=== PATIENT | male | born 1980 | race Caucasian/White ===

== ENCOUNTER → 2023-01-10 | Emergency (ER) | payer OTHER ==
[~2023-01-10] MED LIST: NA CHLORIDE 0.9% 1,000 ML ONE
== END ==
LOC: ER 15:38
DX: Z02.9 Encounter for administrative examinations, unspecified (principal)

== ENCOUNTER 2023-01-12 11:24 | Emergency (ER) | payer OTHER, SELFPAY ==
[2023-01-12 12:09] LABS: Absolute Lymphocytes (CBC) 1.3 K/uL (0.7-4.9); Hematocrit 39.5 % (39.6-49.0); MCV 88.7 fL (80-100); RBC Red Blood Cell Count 4.45 M/uL (4.33-5.43)
[2023-01-12 12:32] LABS: ALT/SGPT 70 U/L (16-61); AST/SGOT 105 U/L (15-37); Albumin 3.6 g/dL (3.4-5.0); Alkaline Phosphatase 86 U/L (45-117); BUN Blood Urea Nitrogen 23 mg/dL (7-18); Bicarbonate 27 mEq/L (21-32); Bilirubin Total 0.3 mg/dL (0.2-1.0); Glomerular Filtration Rate 65 ml/min (=/>90); Glucose Level 110 mg/dL (74-106); Magnesium 2.3 mg/dL (1.6-2.4); NT PRO-BNP 11 pg/mL (<125); Potassium 4.7 mEq/L (3.5-5.1); Protein, Total 7.4 g/dL (6.4-8.2); Sodium Level 134 mEq/L (136-145); Troponin High Sensitivity 7.9 pg/mL (<58.9)
--- NOTE | 2023-01-12 12:32 | RAD REPORT ---
EXAM DESCRIPTION: [facility] Single View01/12/2023 12:19 pm CLINICAL HISTORY: Chest pain COMPARISON: none FINDINGS: A 3 millimeter nodular opacity mid right lung The lungs appear clear of acute infiltrate. The heart is normal size IMPRESSION: 3 millimeter nodular opacity mid right lung probably benign. Follow-up x-ray in 1 year r ecommended
[2023-01-12 12:33] LABS: Bilirubin Direct < 0.1 mg/dL (0-0.2); Bilirubin Indirect, Calculated ND mg/dL (0.2-0.8)
--- NOTE | 2023-01-12 13:10 | ER ---
Nurse's Notes [facility] Name: Tk Tineo Age: 42 yrs Sex: Male : 1980 Arrival Date: 01/12/2023 Time: 11:24 Bed 3 Private MD: Diagnosis: Dizziness and giddiness;Dehydration Presentation: 01/12 11:37 Chief complaint: Patient states: I've been feeling off, my BP has been up and down , iw has had cold sweats, feels weak, went to urgent care last night , EKG was abnormal and was told to follow up with cardiology. Coronavirus screen: Client presents with at least one sign or symptom that may indicate coronavirus-19. Ebola Screen: Patient negative for fever greater than or equal to 101.5 degrees Fahrenheit, and additional compatible Ebola Virus Disease symptoms Patient denies exposure to infectious person. Patient denies travel to an Ebola-affected area in the 21 days before illness onset. No symptoms or risks identified at this time. 11:37 Method Of Arrival: Ambulatory iw 11:37 Acuity: MALINDA 3 iw 11:39 Initial Sepsis Screen: Does the patient meet any 2 criteria? No. Patient's initial iw sepsis screen is negative. Does the patient have a suspected source of infection? No. Patient's initial sepsis screen is negative. Risk Assessment: Do you want to hurt yourself or someone else? Patient reports no desire to harm self or others. Onset of symptoms was January 10, 2023. Historical: - Allergies: 11:42 No Known Allergies; iw - Home Meds: 11:42 lisinopril 20 mg Oral tablet daily [Active]; Albuterol Inhl [Active]; iw - PMHx: 11:42 Hypertensive disorder; Asthma; iw - Immunization history:: Client reports receiving the 2nd dose of the Covid vaccine. - Social history:: Smoking status: Patient denies any tobacco usage or history of. Screenin:00 [facility] ED Fall Risk Assessment (Adult) History of falling in the last 3 months, aa5 including since admission No falls in past 3 months (0 pts) Confusion or Disorientation No (0 pts) Intoxicated or Sedated No (0 pts) Impaired Gait No (0 pts) Mobility Assist Device Used No (0 pt) Altered Elimination No (0 pt) Score/Fall Risk Level 0 - 2 = Low Risk Oriented to surroundings, Maintained a safe environment, Educated pt \T\ family on fall prevention, incl call for assistance when getting out of bed. Abuse screen: Denies threats or abuse. Nutritional screening: No deficits noted. Tuberculosis screening: No symptoms or risk factors identified. Assessment: 12:00 General: Appears comfortable, Behavior is calm, cooperative. Pain: Denies pain. Neuro: aa5 Level of Consciousness is awake, alert, obeys commands, Oriented to person, place, time, situation, Reports dizziness, upon standing and with movement. Cardiovascular: Heart tones S1 S2 present Rhythm is regular. Respiratory: Airway is patent Respiratory effort is even, unlabored, Respiratory pattern is regular, symmetrical. GI: Abdomen is round non-distended, Bowel sounds present X 4 quads. Abd is soft and non tender X 4 quads. Patient currently denies diarrhea, nausea, vomiting. : No signs and/or symptoms were reported regarding the genitourinary system. EENT: No signs and/or symptoms were reported regarding the EENT system. Derm: Skin is pink, warm \T\ dry. Musculoskeletal: Range of motion: intact in all extremities. Vital Signs: 11:39 BP 126 / 95; Pulse 85; Resp 16; Pulse Ox 100% on R/A; Weight 111.13 kg; Height 6 ft. 4 iw in. ; Pain 0/10; 13:00 BP 118 / 74; Pulse 67; Pulse Ox 99% on R/A; ap3 11:39 Body Mass Index 29.82 (111.13 kg, 193.04 cm) iw 11:39 Pain Scale: Adult iw ED Course: 11:29 Patient arrived in ED. im 11:37 Corey Guerrier MD is Attending Physician. jr11 11:38 Triage completed. iw 11:39 Arm band placed on. iw 11:48 Charlene Higgins, CANDE is Primary Nurse. aa5 12:00 Patient has correct armband on for positive identification. Bed in low position. Call aa5 light in reach. Side rails up X2. Client placed on continuous cardiac and pulse oximetry monitoring. NIBP monitoring applied. 12:00 Initial lab(s) drawn, by me, sent to lab. Inserted saline lock: 20 gauge in left aa5 antecubital area, using aseptic technique. Blood collected. 12:20 XRAY Chest (1 view) In Process Unspecified. EDMS 13:23 Provided Education on: discharge instructions. ap3 13:23 No provider procedures requiring assistance completed. IV discontinued, intact, ap3 bleeding controlled, No redness/swelling at site. Pressure dressing applied. Administered Medications: 12:07 Drug: NS 0.9% IV 1000 ml Route: IV; Rate: 999 ml/hr; Site: left antecubital; ap3 13:18 Follow up: IV Status: Completed infusion ap3 Medication: 13:24 VIS not applicable for this client. ap3 Outcome: 13:09 Discharge ordered by . renetta 13:23 Discharged to home ambulatory, with family. ap3 13:23 Condition: good 13:23 Discharge instructions given to patient, family, Instructed on discharge instructions, follow up and referral plans. Demonstrated understanding of instructions, follow-up care. 13:24 Patient left the ED. ap3 Signatures: Dispatcher [employer] EDMS Lianet Jordan RN RN iw Charlene Higgins RN RN aa5 Park Cam RN RN ap3 Corey Guerrier MD MD jr11 Nereyda Colmenares Corrections: (The following items were deleted from the chart) 11:44 11:39 BP 126 / 95; Pulse 85bpm; Resp 16bpm; Pulse Ox 100% RA; iw iw
--- NOTE | 2023-01-12 13:10 | EDPHYS ---
Physician Documentation [facility] Name: Tk Tineo Age: 42 yrs Sex: Male : 1980 Arrival Date: 01/12/2023 Time: 11:24 Bed 3 Private MD: ED Physician Corey Guerrier HPI: 01/12 11:48 This 42 yrs old Male presents to ER via Ambulatory with complaints of Flu Symptoms, bp jr11 issues, Dizziness. 11:48 Patient is a 42-year-old with history of hypertension on lisinopril and also asthma jr11 here with 3-day history of just not feeling well. Patient feels generalized weakness, some shakiness, went to an urgent care where he was told he had an abnormal EKG but does not remember what the finding was. Denies shortness of breath denies chest pain. Denies exertional pain, no tearing pain, does not radiate to the back, does not cross the diaphragm. No diaphoresis, no vomiting. No syncope or near-syncope. . Historical: - Allergies: 11:42 No Known Allergies; iw - Home Meds: 11:42 lisinopril 20 mg Oral tablet daily [Active]; Albuterol Inhl [Active]; iw - PMHx: 11:42 Hypertensive disorder; Asthma; iw - Immunization history:: Client reports receiving the 2nd dose of the Covid vaccine. - Social history:: Smoking status: Patient denies any tobacco usage or history of. ROS: 11:48 All other systems are negative. jr11 Exam: 11:48 Constitutional: This is a well developed, well nourished patient who is awake, alert, jr11 and in no acute distress. Head/Face: Normocephalic, atraumatic. Eyes: Extra-ocular motions intact. Lids and lashes normal. Conjunctiva and sclera are non-icteric and not injected. Cornea within normal limits. Periorbital areas with no swelling, redness, or edema. ENT: Nares patent. No nasal discharge, no septal abnormalities noted. Oropharynx with no redness, swelling, or masses, exudates, or evidence of obstruction, uvula midline. Mucous membranes moist. Neck: Trachea midline, no thyromegaly or masses palpated, and no cervical lymphadenopathy. Supple, full range of motion without nuchal rigidity, or vertebral point tenderness. No Meningismus. Chest/axilla: Normal chest wall appearance and motion. Nontender with no deformity. No lesions are appreciated. Cardiovascular: Regular rate and rhythm with a normal S1 and S2. No gallops, murmurs, or rubs. Normal PMI, no JVD. No pulse deficits. Respiratory: Lungs have equal breath sounds bilaterally, clear to auscultation and percussion. No rales, rhonchi or wheezes noted. No increased work of breathing, no retractions or nasal flaring. Abdomen/GI: Soft, non-tender, with normal bowel sounds. No distension or tympany. No guarding or rebound. No evidence of tenderness throughout. Skin: Warm, dry with normal turgor. Normal color with no rashes, no lesions, and no evidence of cellulitis. MS/ Extremity: Pulses equal, no cyanosis. Neurovascular intact. Full, normal range of motion. Neuro: Awake and alert, GCS 15, oriented to person, place, time, and situation. No gross motor or sensory deficits. Vital Signs: 11:39 BP 126 / 95; Pulse 85; Resp 16; Pulse Ox 100% on R/A; Weight 111.13 kg; Height 6 ft. 4 iw in. ; Pain 0/10; 13:00 BP 118 / 74; Pulse 67; Pulse Ox 99% on R/A; ap3 11:39 Body Mass Index 29.82 (111.13 kg, 193.04 cm) iw 11:39 Pain Scale: Adult iw MDM: 11:48 Patient medically screened. jr11 11:48 Differential diagnosis: cardiac arrhythmia, generalized weakness, hypovolemia, vertigo. jr11 Data reviewed: vital signs, nurses notes. 12:03 ED course: EKG interpreted by me shows normal sinus rhythm, normal axis, normal jr11 intervals, no acute ST changes.. 13:08 ED course: Chest x-ray interpreted by me does not show pneumonia, concern for nodule. jr11 Discussed this nodule with the patient, patient understands that it is his responsibility to follow-up in 1 month. No emergent need to do anything with this at this time. Patient with slight volume depletion, will start hydrating with Gatorade, EKG normal. ER warnings given all results explained. Patient feeling back to baseline. 01/12 11:47 Order name: Basic Metabolic Panel; Complete Time: 12:36 jr11 07/31 11:47 Order name: CBC with Diff; Complete Time: 12:36 01/12 11:47 Order name: LFT's; Complete Time: 12:36 01/12 11:47 Order name: Magnesium; Complete Time: 12:36 01/12 11:47 Order name: NT PRO-BNP; Complete Time: 12:36 01/12 11:47 Order name: Troponin HS; Complete Time: 12:36 01/12 11:47 Order name: TSH; Complete Time: 12:36 01/12 11:48 Order name: SARS-COV-2 RT PCR; Complete Time: 13:08 01/12 11:47 Order name: XRAY Chest (1 view); Complete Time: 12:36 01/12 11:47 Order name: EKG; Complete Time: 11:47 01/12 11:47 Order name: Cardiac monitoring; Complete Time: 11:59 01/12 11:47 Order name: EKG - Nurse/Tech; Complete Time: 11:56 01/12 11:47 Order name: IV Saline Lock; Complete Time: 11:59 01/12 11:47 Order name: Labs collected and sent; Complete Time: 11:59 01/12 11:47 Order name: O2 Per Protocol; Complete Time: 11:59 01/12 11:47 Order name: O2 Sat Monitoring; Complete Time: 11:59 Administered Medications: 12:07 Drug: NS 0.9% IV 1000 ml Route: IV; Rate: 999 ml/hr; Site: left antecubital; ap3 13:18 Follow up: IV Status: Completed infusion ap3 Disposition Summary: 01/12/23 13:09 Discharge Ordered Location: Home jr11 Condition: Stable jr11 Diagnosis - Dizziness and giddiness jr11 - Dehydration jr11 Followup: jr11 - With: Private Physician - When: 2 - 3 days - Reason: Re-evaluation by your physician Discharge Instructions: - Discharge Summary Sheet jr11 - Dehydration, Adult jr11 - Dizziness jr11 Forms: - Medication Reconciliation Form jr11 - Thank You Letter jr11 - Antibiotic Education jr11 - Prescription Opioid Use jr11 - Patient Portal Instructions jr11 Signatures: Dispatcher [employer] Lianet Crandall, RN RN iw Park Cam, RN RN ap3 Corey Guerrier MD MD jr11
[2023-01-12 14:20] VITALS: BP 118/74; O2SAT 99
--- NOTE | 2023-01-12 18:48 | EKG ---
Test Date: 2023-01-12 Test Time: 11:50:41 Stereo Map Plotter Operator: SAM MEASUREMENT RESULTS: Intervals: Rate: 66 SC: 194 QRSD: 88 QT: 376 QTc: 394 [place]: P: 48 SC: 194 QRS: 57 T: 46 INTERPRETIVE STATEMENTS: Normal sinus rhythm with sinus arrhythmia Normal ECG No previous ECG available for comparison Electronically Signed On 01-12-23 18:47:39 CDT by Sandro Mckeon
== END 2023-01-12 13:24 | disposition home or self-care (01) ==
LOC: ER 11:24
DX: E86.0 Dehydration (principal)
CPT/HCPCS: 36415; 71045; 80048; 80076; 83735; 83880; 84443; 84484; 85025; 87635; 93005; 96360; 99284